=== PATIENT | female | born 1945 | race Caucasian/White ===

== ENCOUNTER → 2019-12-13 | Outpatient (CLI) | payer MEDICARE ==
[~2019-12-13] MED LIST: AMLODIPINE BESYL5 MG PO; BENADRYL25 M1 PO; CALCIUM 600 MG1 EAC4 PO; DAILY VITAMIN1 EAC3 PO; FLUOXETINE HCL40 MG PO; FOSAMAX70 MG PO; OMEPRAZOLE40 MG PO; REGADENOSON 0.4 MG/5 ML SYR IV ONE; TYLENOL PO; XARELTO20 MG PO; Z.0.COUMADIN6 MG PO; Z.0.COZAAR100 MG PO; Z.0.FOSAMAX70 MG PO; Z.0.LASIX40 MG PO; Z.0.NORCO 10-325 T1 PO; [UNRECOGNIZED DRUG - OTHER] PO
--- NOTE | 2019-12-13 21:27 | Myoview Stress Test ---
DATE OF STUDY: 12/13/2019 09:49:00 Stress Test - Treadmill ONLY PROCEDURE TITLE: Rest/stress single isotope SPECT imaging with pharmacologic stress and gated SPECT imaging. INDICATION: Chest pain PROCEDURE IN DETAIL: Pharmacologic stress testing was performed with regadenoson per protocol. The heart rate was 49 beats per minute at rest, increased to 69 beats per minute during the regadenoson infusion. The resting blood pressure 122/57 mmHg and decreased to 109/59 mmHg, which is a normal response. The resting electrocardiogram demonstrated normal sinus bradycardia. There were no ST-segment changes suggestive of myocardial ischemia. IMPRESSION: Myocardial perfusion imaging was performed at rest following the injection of 11 mCi of tetrofosmin. At peak pharmacologic effect, the patient was injected with 32 mCi of tetrofosmin. Gated post-stress tomographic imaging was performed. FINDINGS: The overall quality of study is fair. Left ventricular cavity limb. Left ventricular cavity is noted to be normal size on the rest and stress studies. SPECT images demonstrate homogeneous tracer distribution throughout the myocardium. Gated SPECT imaging reveals normal myocardial thickening and wall motion. The left ventricular ejection fraction was calculated to be greater than 70%. CONCLUSION: Myocardial perfusion imaging is normal. Overall, left ventricular systolic function was normal without regional wall motion abnormalities. Raisa Coley MD ABS/MODL /[id number]
== END ==
LOC: NM 09:24
PROVIDERS: ATTEND Internal Medicine Cardiovascular Disease
DX: R07.9 Chest pain, unspecified (principal)
CPT/HCPCS: 78452; 93017; A9502